=== PATIENT | male | born 1970 | race Caucasian/White ===

== ENCOUNTER 2017-06-20 17:43 | Inpatient (IN) | payer OTHER ==
[~2017-06-20] VITALS: Ht 182.9 cm; Wt 68.4 kg
[2017-06-20 18:22] LABS: HEMATOCRIT 45.7 % (39.2-51.8); HEMOGLOBIN 15.6 g/dL (13.7-18.0); WHITE BLOOD COUNT 8.9 x10^3/uL (3.4-10)
[2017-06-20] MEDS ORDERED: SODIUM CHLORIDE FLUSH 10ML SYR IVF ONE (18:30)
[2017-06-20 18:34] LABS: BLOOD UREA NITROGEN 12 mg/dL (7-18)
[2017-06-20 18:41] LABS: IS PT STATUS REG ER OR PRE ER? YES
[2017-06-20] MEDS ORDERED: ASPIRIN 325 MG TABLET ONE (19:52)
[2017-06-20] MEDS ORDERED: ASPIRIN 325 MG TABLET PO ONE (20:00)
[2017-06-20 21:42] LABS: IS PT STATUS REG ER OR PRE ER? YES
[2017-06-20] MEDS ORDERED: ACET325T14 PO (22:05)
[2017-06-20] MEDS ORDERED: IBUP-1222 PO (22:05)
[2017-06-21] MEDS ORDERED: ACETAMINOPHEN 325 MG TABLET PO PRN
[2017-06-21] MEDS ORDERED: NITROGLYCERIN 0.4 MG BOTTLE (25 TABS) SL PRN
[2017-06-21] MEDS ORDERED: ONDANSETRON ODT 4 MG PO PRN
[2017-06-21] MEDS ORDERED: morphine SULFATE 10 MG/ML, 1ML IVPush PRN
[2017-06-21] MEDS ORDERED: ENOXAPARIN 80 MG/0.8 ML ONE (00:01)
[2017-06-21] MEDS: ENOXAPARIN 80 MG/0.8 ML SQ SCH ×2 (00:09→12:57)
[2017-06-21] MEDS: ATORVASTATIN 80 MG TABLET PO SCH ×2 (01:00→20:56)
[2017-06-21 03:02] LABS: HEMATOCRIT 43.1 % (39.2-51.8); HEMOGLOBIN 14.8 g/dL (13.7-18.0); WHITE BLOOD COUNT 7.6 x10^3/uL (3.4-10)
[2017-06-21 03:10] LABS: BLOOD UREA NITROGEN 13 mg/dL (7-18)
[2017-06-21 03:19] LABS: IS PT STATUS REG ER OR PRE ER? YES
[2017-06-21] MEDS ORDERED: ASPIRIN 325 MG TABLET EC PO SCH (06:00)
[2017-06-21] MEDS ORDERED: ASPIRIN 325 MG TABLET EC ONE (06:27)
[2017-06-21] MEDS ORDERED: TICAGRELOR 90 MG TABLET PO ONE (08:00)
[2017-06-21] MEDS ORDERED: METOPROLOL TARTRATE 25 MG TABLET PO SCH (09:00)
[2017-06-21 09:14] LABS: IS PT STATUS REG ER OR PRE ER? YES
[2017-06-21 09:59] VITALS: BP 124/82
[2017-06-21] MEDS ORDERED: ACET-1600 PO (10:24)
[2017-06-21] MEDS: METOPROLOL TARTRATE 25 MG TABLET PO SCH (12:57)
[2017-06-21 16:21] VITALS: BP 111/62
[2017-06-21 19:33] VITALS: BP 121/77
[2017-06-22] MEDS: ENOXAPARIN 80 MG/0.8 ML SQ SCH (02:25)
[2017-06-22 03:07] VITALS: BP 118/76
[2017-06-22] MEDS ORDERED: ASPIRIN 325 MG TABLET EC PO SCH (06:00)
[2017-06-22] MEDS: METOPROLOL TARTRATE 25 MG TABLET PO SCH (08:24)
[2017-06-22 08:25] VITALS: BP 126/80
[2017-06-22] MEDS ORDERED: REGADENOSON 0.4 MG/5 ML SYRINGE ONE (08:42)
[2017-06-22] MEDS ORDERED: METOPROLOL TARTRATE 25 MG TABLET PO SCH (09:00)
[2017-06-22] MEDS ORDERED: ENOXAPARIN 60 MG/0.6 ML SQ SCH (13:00)
[2017-06-22 13:25] VITALS: BP 113/78
== END 2017-06-22 16:02 | disposition home or self-care (01) | DRG 391 ==
LOC: ED 21:11 → EDIP 21:50 → 5SO 06-21 09:46
PROVIDERS: ADMIT Family Medicine; ATTEND Family Medicine
DX: K21.9 Gastro-esophageal reflux disease without esophagitis (principal); I21.4 Non-ST elevation (NSTEMI) myocardial infarction; R07.9 Chest pain, unspecified; E03.9 Hypothyroidism, unspecified; G89.29 Other chronic pain; I25.10 Atherosclerotic heart disease of native coronary artery without angina pectoris; M54.9 Dorsalgia, unspecified; Z87.891 Personal history of nicotine dependence; Z79.1 Long term (current) use of non-steroidal anti-inflammatories (NSAID); Z88.8 Allergy status to other drugs, medicaments and biological substances; Z82.49 Family history of ischemic heart disease and other diseases of the circulatory system
CPT/HCPCS: 36415; 71020; 78452; 80048; 80061; 82040; 83036; 83735; 83880; 84100; 84439; 84443; 84484; 85025; 93005; 93017; 99285; J1650; J2785; A9502; C9898

== ENCOUNTER 2017-06-24 17:53 | Observation (INO) | payer OTHER ==
[~2017-06-24] VITALS: Ht 182.9 cm; Wt 69.5 kg
[~2017-06-24 17:53] MED LIST: ACET-1600 PO; ACET325T14 PO; IBUP-1222 PO
[2017-06-24] MEDS ORDERED: SODIUM CHLORIDE 0.9% 1,000ML IVBOLUS ONE (18:30)
[2017-06-24] MEDS ORDERED: SODIUM CHLORIDE FLUSH 10ML SYR IVF ONE (18:30)
[2017-06-24] MEDS ORDERED: ONDANSETRON 2MG/ML, 2ML IVPush ONE (18:30)
[2017-06-24] MEDS ORDERED: MORPHINE SULFATE 4 MG/ML, 1ML IVPush PRN (18:30)
[2017-06-24] MEDS ORDERED: ONDANSETRON 2MG/ML, 2ML ONE (18:40)
[2017-06-24] MEDS ORDERED: MORPHINE SULFATE 4 MG/ML, 1ML ONE (18:40)
[2017-06-24 19:06] LABS: HEMATOCRIT 44.6 % (39.2-51.8); WHITE BLOOD COUNT 7.7 x10^3/uL (3.4-10)
[2017-06-24 19:20] LABS: BLOOD UREA NITROGEN 11 mg/dL (7-18)
[2017-06-24 19:25] LABS: ASPARTATE AMINO TRANSFERASE 34 U/L (15-37)
[2017-06-24 19:28] LABS: IS PT STATUS REG ER OR PRE ER? YES
[2017-06-24] MEDS ORDERED: MAALOX/HYOSCYAMINE/LIDOCAINE 45 ML BTL PO ONE (19:30)
[2017-06-24] MEDS ORDERED: NITROGLYCERIN 0.4 MG BOTTLE (25 TABS) SL PRN (22:00)
[2017-06-24] MEDS ORDERED: NITROGLYCERIN 0.4 MG/SPRAY SL PRN (22:00)
[2017-06-24] MEDS ORDERED: morphine SULFATE 10 MG/ML, 1ML IVPush PRN (22:00)
[2017-06-24] MEDS ORDERED: HEPARIN 5,000 UNITS/ML, 1ML SQ SCH (22:00)
[2017-06-24] MEDS ORDERED: NS + 20MEQ KCL 1,000 ML IV SCH (22:30)
[2017-06-24 22:53] VITALS: BP 116/80
[2017-06-24] MEDS: ATORVASTATIN 80 MG TABLET PO SCH (23:49)
[2017-06-25 00:46] VITALS: BP 109/71
[2017-06-25 01:15] LABS: IS PT STATUS REG ER OR PRE ER? NO
[2017-06-25] MEDS: ASPIRIN 325 MG TABLET EC PO SCH (06:32)
[2017-06-25 06:45] LABS: HEMATOCRIT 42.4 % (39.2-51.8); HEMOGLOBIN 14.2 g/dL (13.7-18.0); WHITE BLOOD COUNT 6.6 x10^3/uL (3.4-10)
[2017-06-25 06:55] LABS: BLOOD UREA NITROGEN 9 mg/dL (7-18)
[2017-06-25 07:07] LABS: IS PT STATUS REG ER OR PRE ER? NO
[2017-06-25] MEDS: NS + 20MEQ KCL 1,000 ML IV SCH ×2 (08:56→20:24)
[2017-06-25] MEDS: METOPROLOL TARTRATE 25 MG TABLET PO SCH (08:56)
[2017-06-25] MEDS: ENOXAPARIN 60 MG/0.6 ML SQ SCH ×2 (08:56→20:24)
[2017-06-25 08:58] VITALS: BP 114/76
[2017-06-25 14:02] VITALS: BP 115/68
[2017-06-25] MEDS ORDERED: MIDAZOLAM 1 MG/ML, 5ML ONE (14:18)
[2017-06-25] MEDS ORDERED: FENTANYL PF 100 MCG/2ML ONE (14:18)
[2017-06-25] MEDS ORDERED: TICAGRELOR 90 MG TABLET ONE (14:18)
[2017-06-25] MEDS ORDERED: VERAPAMIL 2.5 MG/ML, 2ML ONE (14:18)
[2017-06-25] MEDS ORDERED: LIDOCAINE 2%, 20ML ONE (14:19)
[2017-06-25] MEDS ORDERED: BIVALIRUDIN 250 MG ONE (14:19)
[2017-06-25] MEDS ORDERED: HEPARIN 1,000 UNITS/ML, 10ML ONE (14:19)
[2017-06-25] MEDS: ATORVASTATIN 80 MG TABLET PO SCH (20:24)
[2017-06-25] MEDS ORDERED: ACETAMINOPHEN 325 MG TABLET PO PRN (20:30)
[2017-06-25 20:42] VITALS: BP 119/75
[2017-06-26 04:12] VITALS: BP 100/66
[2017-06-26] MEDS: NS + 20MEQ KCL 1,000 ML IV SCH ×2 (04:17→12:04)
[2017-06-26 09:21] VITALS: BP 120/79
[2017-06-26] MEDS: METOPROLOL TARTRATE 25 MG TABLET PO SCH (09:36)
[2017-06-26] MEDS: ASPIRIN 325 MG TABLET EC PO SCH (09:36)
[2017-06-26] MEDS: ENOXAPARIN 60 MG/0.6 ML SQ SCH (09:38)
[2017-06-26 15:05] VITALS: BP 119/78
== END 2017-06-26 17:15 | disposition home or self-care (01) ==
LOC: ED 19:24 → INTOOBSV 20:52 → EDIP 20:52 → 5SO 22:43 → UNDODISOB 06-26 16:39
PROVIDERS: ADMIT Family Medicine; ATTEND Family Medicine
DX: I20.0 Unstable angina (principal); Z87.891 Personal history of nicotine dependence; Z82.49 Family history of ischemic heart disease and other diseases of the circulatory system; F10.129 Alcohol abuse with intoxication, unspecified
CPT/HCPCS: 36415; 71010; 80048; 80053; 83735; 84100; 84484; 85025; 85379; 93005; 93306; 93458; 96372; 96374; 96375; 99156; 99285; C1894; G0378; J1644; J1650; J2250; J2405; J3010; J3480; J3490; J7030; Q9967; J0583